=== PATIENT | female | born 1980 | race Caucasian/White ===

== ENCOUNTER 2022-01-12 17:14 | Emergency (ER) | payer BC, OTHER ==
[~2022-01-12] VITALS: Ht 160 cm; Wt 100.0 kg
[2022-01-12 19:22] VITALS: BP 132/82
== END 2022-01-12 19:29 | disposition home or self-care (01) ==
LOC: M ED 17:14
DX: R55 Syncope and collapse (principal); S09.90XA Unspecified injury of head, initial encounter; W19.XXXA Unspecified fall, initial encounter; Y92.59 Other trade areas as the place of occurrence of the external cause; I10 Essential (primary) hypertension; E11.9 Type 2 diabetes mellitus without complications; Z79.4 Long term (current) use of insulin

== ENCOUNTER → 2022-04-23 | Outpatient (REF) | payer OTHER, BC ==
[2022-04-23 18:47] LABS: APPEARANCE, URINE MANUAL TURBID (CLEAR); COLOR, URINE MANUAL YELLOW (YELLOW); PROTEIN, URINE MANUAL 1+ mg/dL (NEGATIVE); SPECIFIC GRAVITY,URINE MANUAL 1.025 (1.002-1.035)
[2022-04-23 18:48] LABS: BILIRUBIN, URINE MANUAL NEGATIVE (NEGATIVE); BLOOD URINE MANUAL NEGATIVE (NEGATIVE); GLUCOSE, URINE (UA) MANUAL 2+(250 MG/DL) mg/dL (NEGATIVE); KETONE, URINE MANUAL NEGATIVE (NEGATIVE); LEUKOCYTE ESTERASE, URINE MAN TRACE (NEGATIVE); NITRITE, URINE MANUAL NEGATIVE (NEGATIVE); UROBILINOGEN, URINE MANUAL NORMAL (NORMAL)
[2022-04-23 19:00] LABS: AMORPHOUS SEDIMENT, URINE LARGE AMOUNT (NEGATIVE); BACTERIA, URINE NONE SEEN; HYALINE CAST, URINE NONE SEEN /lpf (0-1); RBC, URINE NONE SEEN /hpf (0-3); SQUAMOUS EPITHELIAL CELL URINE SMALL AMOUNT /hpf (SMALL AMT); WBC, URINE 0-1 /hpf (0-3)
== END ==
LOC: M SMT 17:14
PROVIDERS: ATTEND Urology
DX: N20.0 Calculus of kidney (principal)

== ENCOUNTER → 2022-04-30 | Outpatient (CLI) | payer OTHER | LOC: M PLAIMG 08:31 | PROVIDERS: ATTEND Urology | DX: N20.0 Calculus of kidney (principal) ==

== ENCOUNTER → 2022-05-03 | Outpatient (CLI) | payer OTHER | LOC: M WHC 14:14 | PROVIDERS: ATTEND Physician Assistant | DX: D17.23 Benign lipomatous neoplasm of skin and subcutaneous tissue of right leg (principal); N20.0 Calculus of kidney ==

== ENCOUNTER → 2022-05-20 | Outpatient (CLI) | payer OTHER ==
[~2022-05-20] MED LIST: OMEGA-3 1000MG CAPSULE ONE; PROHANCE 279.3MG/ML 15ML VIAL ONE; PROHANCE 279.3MG/ML 5ML VIAL ONE
== END ==
LOC: M PLAIMG 13:34
PROVIDERS: ATTEND Physician Assistant
DX: R93.6 Abnormal findings on diagnostic imaging of limbs (principal); M54.50 Low back pain, unspecified
CPT/HCPCS: 73720; A9576

== ENCOUNTER → 2022-06-07 | Outpatient (CLI) | payer OTHER ==
[~2022-06-07] MED LIST changes: +CITA40TA7 PO; +DULA3PEN SUBQ; +LISI10TA22 PO; +LORA1TAB4 PO; -OMEGA-3 1000MG CAPSULE ONE; -PROHANCE 279.3MG/ML 15ML VIAL ONE; -PROHANCE 279.3MG/ML 5ML VIAL ONE
== END ==
LOC: M ONCR 07:54
PROVIDERS: ATTEND General Practice
DX: R22.41 Localized swelling, mass and lump, right lower limb (principal); E11.9 Type 2 diabetes mellitus without complications; E78.5 Hyperlipidemia, unspecified; G47.33 Obstructive sleep apnea (adult) (pediatric); I10 Essential (primary) hypertension; M54.9 Dorsalgia, unspecified; Z79.899 Other long term (current) drug therapy

== ENCOUNTER 2022-10-01 10:08 | Outpatient (RCR) | payer OTHER, SELFPAY ==
[~2022-10-01 10:08] MED LIST changes: +LORA1TAB23 PO; -LORA1TAB4 PO
[2022-11-07] MEDS ORDERED: PROC10TA5 PO (09:36)
== END 2022-10-04 ==
LOC: M ONCR 10:08
PROVIDERS: ATTEND General Practice
DX: C49.21 Malignant neoplasm of connective and soft tissue of right lower limb, including hip (principal)

== ENCOUNTER 2022-11-01 09:41 | Outpatient (RCR) | payer MEDICAID, OTHER ==
[2022-11-07] MEDS ORDERED: PROC10TA5 PO (09:36)
== END 2022-11-03 ==
LOC: M ONCR 09:41
PROVIDERS: ATTEND General Practice
DX: C49.21 Malignant neoplasm of connective and soft tissue of right lower limb, including hip (principal)

== ENCOUNTER 2022-11-26 09:50 | Outpatient (RCR) | payer MEDICAID, SELFPAY ==
[~2022-11-26 09:50] MED LIST changes: +PROC10TA5 PO
== END 2022-12-04 ==
LOC: M ONCR 09:50
PROVIDERS: ATTEND General Practice
DX: C49.21 Malignant neoplasm of connective and soft tissue of right lower limb, including hip (principal)

== ENCOUNTER → 2023-02-26 | Outpatient (CLI) | payer MEDICAID, OTHER ==
[~2023-02-26] MED LIST changes: +GABA-282 PO
== END ==
LOC: M ONCR 09:47
PROVIDERS: ATTEND General Practice
DX: C49.21 Malignant neoplasm of connective and soft tissue of right lower limb, including hip (principal); E55.9 Vitamin D deficiency, unspecified; M79.604 Pain in right leg; N91.2 Amenorrhea, unspecified; F12.90 Cannabis use, unspecified, uncomplicated; Z71.2 Person consulting for explanation of examination or test findings; Z79.85 Long-term (current) use of injectable non-insulin antidiabetic drugs; Z79.899 Other long term (current) drug therapy; Z92.3 Personal history of irradiation

== ENCOUNTER → 2023-03-06 | Outpatient (CLI) | payer MEDICAID, OTHER | LOC: M WHC 09:00 | PROVIDERS: ATTEND Advanced Practice Midwife | DX: Z12.31 Encounter for screening mammogram for malignant neoplasm of breast (principal) ==

== ENCOUNTER → 2023-03-06 | Outpatient (REF) | payer OTHER ==
[2023-03-06 13:44] LABS: APPEARANCE, URINE HAZY (CLEAR); BACTERIA, URINE AUTO 1+ (NEGATIVE); BILIRUBIN, URINE AUTO NEGATIVE (NEGATIVE); BLOOD, URINE BLOOD NEGATIVE (NEGATIVE); CALCIUM OXALATE CRYSTALS MODERATE; COLOR, URINE YELLOW (YELLOW); GLUCOSE, URINE (UA) AUTO NEGATIVE (NEGATIVE); KETONE, URINE AUTO NEGATIVE (NEGATIVE); LEUKOCYTE ESTERASE, URINE AUTO NEGATIVE (NEGATIVE); MUCUS, URINE SMALL (NEGATIVE); NITRITE, URINE AUTO NEGATIVE (NEGATIVE); PROTEIN, URINE AUTO NEGATIVE (NEGATIVE); RBC, URINE AUTO 3 /HPF (0-3); SPECIFIC GRAVITY URINE AUTO 1.018 (1.002-1.035); SQUAMOUS EPITHELIAL CELL UR AU 4 /HPF (0-6); UROBILINOGEN, URINE AUTO 0.2 mg/dL (0.0-2.0); WBC, URINE AUTO 0 /HPF (0-3)
== END ==
LOC: M PLALAB 09:15
PROVIDERS: ATTEND Advanced Practice Midwife
DX: Z12.4 Encounter for screening for malignant neoplasm of cervix (principal); R39.15 Urgency of urination

== ENCOUNTER → 2024-08-20 | Outpatient (CLI) | payer OTHER ==
[~2024-08-20] MED LIST changes: +GABA-1172 PO; -GABA-282 PO
== END ==
LOC: M ONCR 09:52
PROVIDERS: ATTEND General Practice
DX: C49.21 Malignant neoplasm of connective and soft tissue of right lower limb, including hip (principal); I89.0 Lymphedema, not elsewhere classified; Z92.3 Personal history of irradiation; Z79.85 Long-term (current) use of injectable non-insulin antidiabetic drugs; Z79.899 Other long term (current) drug therapy

== ENCOUNTER → 2024-10-11 | Outpatient (CLI) | payer OTHER ==
[2024-10-11 14:05] LABS: APPEARANCE, URINE HAZY (CLEAR); BACTERIA, URINE AUTO NEGATIVE (NEGATIVE); BILIRUBIN, URINE AUTO NEGATIVE (NEGATIVE); BLOOD, URINE BLOOD NEGATIVE (NEGATIVE); COLOR, URINE YELLOW (YELLOW); GLUCOSE, URINE (UA) AUTO NEGATIVE (NEGATIVE); KETONE, URINE AUTO NEGATIVE (NEGATIVE); LEUKOCYTE ESTERASE, URINE AUTO NEGATIVE (NEGATIVE); MUCUS, URINE SMALL (NEGATIVE); NITRITE, URINE AUTO NEGATIVE (NEGATIVE); PROTEIN, URINE AUTO NEGATIVE (NEGATIVE); RBC, URINE AUTO 1 /HPF (0-3); SPECIFIC GRAVITY URINE AUTO 1.011 (1.002-1.035); SQUAMOUS EPITHELIAL CELL UR AU 2 /HPF (0-6); UROBILINOGEN, URINE AUTO 0.2 mg/dL (0.0-2.0); WBC, URINE AUTO 1 /HPF (0-3)
== END ==
LOC: M RAD 10:14
PROVIDERS: ATTEND Nurse Practitioner Family
DX: R39.9 Unspecified symptoms and signs involving the genitourinary system (principal); N20.0 Calculus of kidney

== ENCOUNTER → 2024-10-19 | Outpatient (CLI) | payer OTHER ==
[~2024-10-19] MED LIST changes: +PROHANCE 279.3MG/ML 15ML VIAL ONE; +PROHANCE 279.3MG/ML 5ML VIAL ONE
== END ==
LOC: M PLAIMG 06:32
PROVIDERS: ATTEND Physician Assistant
DX: H93.A2 Pulsatile tinnitus, left ear (principal)
CPT/HCPCS: 70553; A9576

== ENCOUNTER → 2025-06-13 | Outpatient (CLI) | payer OTHER ==
[~2025-06-13] MED LIST changes: -PROHANCE 279.3MG/ML 15ML VIAL ONE; -PROHANCE 279.3MG/ML 5ML VIAL ONE
== END ==
LOC: M RAD 16:35
PROVIDERS: ATTEND General Practice
DX: C49.21 Malignant neoplasm of connective and soft tissue of right lower limb, including hip (principal)

== ENCOUNTER → 2025-06-16 | Outpatient (CLI) | payer OTHER | LOC: M ONCR 07:56 | PROVIDERS: ATTEND General Practice | DX: C49.21 Malignant neoplasm of connective and soft tissue of right lower limb, including hip (principal); Z98.890 Other specified postprocedural states; Z92.3 Personal history of irradiation; Z79.85 Long-term (current) use of injectable non-insulin antidiabetic drugs; Z79.899 Other long term (current) drug therapy ==

== ENCOUNTER → 2025-07-04 | Outpatient (REF) | payer OTHER ==
[2025-07-04 17:12] LABS: APPEARANCE, URINE CLOUDY (CLEAR); BACTERIA, URINE AUTO NEGATIVE (NEGATIVE); BILIRUBIN, URINE AUTO NEGATIVE (NEGATIVE); BLOOD, URINE BLOOD 2+ (NEGATIVE); GLUCOSE, URINE (UA) AUTO NEGATIVE (NEGATIVE); KETONE, URINE AUTO NEGATIVE (NEGATIVE); LEUKOCYTE ESTERASE, URINE AUTO NEGATIVE (NEGATIVE); MUCUS, URINE LARGE (NEGATIVE); NITRITE, URINE AUTO NEGATIVE (NEGATIVE); PROTEIN, URINE AUTO 1+ mg/dL (NEGATIVE); RBC, URINE AUTO 5 /HPF (0-3); SPECIFIC GRAVITY URINE AUTO 1.024 (1.002-1.035); SQUAMOUS EPITHELIAL CELL UR AU 7 /HPF (0-6); UROBILINOGEN, URINE AUTO 2.0 mg/dL (0.0-2.0); WBC, URINE AUTO 6 /HPF (0-3)
== END ==
LOC: M LAB REF 16:51
PROVIDERS: ATTEND Physician Assistant Medical
DX: N39.0 Urinary tract infection, site not specified (principal)